=== PATIENT | male | born 1960 | race Caucasian/White ===

== ENCOUNTER → 2017-04-25 09:41 | Outpatient (CLI) | payer OTHER, SELFPAY ==
[2017-04-26 10:09] LABS: Vitamin D,25 Hydroxy 12.1 ng/mL
== END ==
PROVIDERS: Family Provider Internal Medicine; PCP Internal Medicine; Visit Provider Podiatrist
DX: E55.9 Vitamin D deficiency, unspecified (principal)
CPT/HCPCS: 36415; 82306

== ENCOUNTER 2017-05-19 06:27 | Day surgery (SDC) | payer OTHER, SELFPAY ==
[2017-05-19] VITALS (8 sets, daily range): BP systolic 95–117; BP diastolic 59–88; PULSE 70–81; RESP 16; TEMP 36.1–36.3; O2SAT 94–100; BMI 25.4
[2017-05-19 07:09] LABS: Hemoglobin 14.6 g/dl (13.0-16.5); Mean Corpuscular Hgb 30.7 pg (27.0-32.0); Mean Corpuscular Volume 90.5 fL (80-94); Mean Platelet Vol. 10.8 fl (6.2-12.0); Platelet Count 197 K/mm3 (150-450); RBC Distribution Width CV 12.9 % (11.6-14.6); RBC Distribution Width SD 42.3 fl (35.1-43.9); Red Blood Count 4.75 M/mm3 (4.6-6.2); White Blood Count 6.7 K/mm3 (4.4-11.0)
[2017-05-19 07:14] LABS: Anion Gap 6 (5-15); BUN 11 mg/dL (7-18); Chloride 103 mmol/L (98-107); EST Glomerular Filtration Rate 74 mL/min (>60); Est Glom Filt Rate - Afr Amer 89 mL/min (>60); Estimated Creatinine Clearance 72.55 ml/min; Glucose 127 mg/dL (74-106); Potassium 3.8 mmol/L (3.5-5.1); Scan Indicated on CBC? Y/N NO; Sodium Level 139 mmol/L (136-145)
[2017-05-19] MEDS: Clindamycin 900 MG/50 ML BAG 75 MG IV (07:50)
--- NOTE | 2017-05-19 08:00 | RAD_ITS ---
STUDY: X-RAY - RIGHT ANKLE REASON FOR EXAM: Male, 57 years old. Screw removal. TECHNIQUE: 3 intraoperative view(s) of the ankle. COMPARISON: Comparison is made with prior examination dated January 20, 2017. FINDINGS: The patient is status post open reduction and internal fixation of the lateral malleolus with screws and sideplate fixation device. The tube 4.8 centimeter screws transfixing the distal tibia and fibula abdomen removed. Normal medial and lateral malleoli. Normal tibiotalar articulation and ankle mortise. Normal visualized talus and calcaneus. The visualized subtalar, talonavicular, calcaneocuboid and tarsal articulations are normal. The soft tissue structures are unremarkable. RAD/Ankle 2 Views IMPRESSION: Status post hardware removal. Electronically Signed: Rafael Millan MD at 12:21 EST Tel [phone], Service support ,
[2017-05-19] MEDS: Bupivacaine 0.25% 30 ML Vial (08:50)
--- NOTE | 2017-05-19 10:42 | PCM.OPRPT ---
Report of Operation Date of Procedure: 05/19/17 Pre-Operative Diagnosis: Right ankle fracture with retained hardware; distal tib fib syndesmosis instability Post-Operative Diagnosis: Same Surgery/Procedure Performed:: Removal of syndesmotic screws with placement of Arthrex tightropes, right ankle Description of Surgical Findings:: Retained syndesmotic screws right ankle postpartum nurse: Dr Hoyt Type of Anesthesia:: Local MAC Specimen's removed: None Drains: None Estimated Blood Loss (mL): 10mL Description of Procedure: Indications: This is a 57 year old gentleman with history of dislocated ankle fracture who subsequently underwent open reduction internal fixation [id number]. Of note he has been nonadherent with post operative instructions. He has two retained syndesmotic screws. We discussed the options regarding these screws. We discussed the possibility of these breaking if they were not removed, we also discussed syndesmotic screw removal as well as placement of Arthrex Syndesmotic Tightropes. We discussed the possible benefits vs risks, goals and expectations of each, as well as the estimated healing time of further procedure. This was discussed with him in great detail. He expressed understanding and agreement and elected to proceed forward with syndesmotic screw removal with placement of Arthrex Syndesmotic Tightropes. Given the severity of the ankle fracture he had with deltoid ligament compromise and noted distal tib fib syndesmosis instability from the injury, the Arthrex Syndesmotic Tightropes are indicated to provide further stability and control of the ankle senior care. The consent forms were reviewed with him and he freely signed them. All of his questions were answered. Operative Procedure: The patient was brought back into the operative room and was placed on the operating room table in the supine position. He was carefully secured to the operating room table with a safely belt around his waist. The patient did received 900 milligrams of intravenous Clindamycin for antibiotic prophylaxis. A well padded pneumatic tourniquet was applied around the patient's right thigh but was never inflated or used. The patient received MAC anesthesia per the anesthesia team, and a total of 10mL of 0.25% Bupivacaine plain was given as a regional never block to the lateral ankle, this was completed after the overlying skin was cleaned with 70% isopropyl alcohol. The patient's right lower extremity was scrubbed, prepped, and draped in the usual aseptic fashion. A time out was performed and the patient was properly identified and the surgical plan was confirmed. The two syndesmotic screws were identified on intra operative fluoroscopy. A linear longitudinal skin incision was made overlying the lateral aspect of the screw heads. Careful blunt dissection was completed down through the subcutaneous tissue layer and deep tissue; the screw heads were visualized. The distal syndesmotic screw was easily removed with the appropriate screw lumber driver in toto. Holding the ankle in neutral position, one knotless titanium Arthrex syndesmotic tightrope XP was placed across the distal tib fib syndesmosis through the already placed hole from the screw, this was placed in standard fashion. The two buttons were in good position, oblong button medial and circular button lateral. The oblong button was sitting flush with the bone, and the lateral circular button was flush with the plate. The was tightened down being sure not to over tighten. It was in good position providing excellent stability to the ankle. The proximal syndesmotic screw was not able to be removed from the lateral aspect with the appropriate screw lumber driver because the screw had actually sunk deep to the hole of the distal lateral fibular plate. The plate was blocking the screw head from advancing out. It was attempted to remove the screw with the universal screw removal set but a good bite in the retained screw was not obtainable. This striped the screw head. Therefore the tip of the screw was visualized on intra operative fluoroscopy, and small linear skin incision was made to the medial ankle at level of the tip of the screw, careful blunt dissection was completed down through the subcutaneous tissue layer to the tip of the screw, and this was visualized. A 5mm in diameter trephine from the universal screw removal set was used to ream around the tip of the screw through the medial cortex of the tibia. Once this was completed the screw was easily tamped out from medial to lateral in toto without complication. The plate remained intact. Holding the ankle in neutral position, another knotless titanium Arthrex syndesmotic tightrope XP was placed across the distal fibula and tibia for further stability of the distal tib fib syndesmosis, this was placed through the already placed hole from the screw and trephine. A redrill for placement of this tightrope was considered to make more parallel to the ankle joint line, however this was not completed as this would have made the hole on the medial tibia to large risking the oblong button would not site flush or purchase the medial cortex. Otherwise the tightrope was placed in standard fashion. The two buttons were in good position, oblong button medial and circular button lateral. The oblong button was sitting flush with the bone, and the lateral circular button was flush with the plate. The was tightened down being sure not to over tighten. It was in good position providing further excellent stability to the ankle. All vital structures, including the peroneal tendons, as well as all neurovascular structures were avoided during this procedure, they were carefully protected and gently retracted out of the way as necessary. The ankle was placed through range of motion and it was good, and gliding smoothly with no popping, clicking or crepitus present. The ankle was stressed, there was negative anterior drawer sign, normal talar tilt and no distal tib fib instability at this time. The sites were flushed out with copious amounts of normal saline solution. The subcutaneous tissue layer was reapproximated using 3-0 Vicryl. The skin was reapproximated using 3-0 Monocryl. A dressing was applied which consisted of betadine soaked adaptic, 4x4 gauze, Kerlix, and daniele bandage. Hemostasis was achieved throughout the operative procedure with pressure and gauze, there was ~10mL of blood loss. Intra-operative fluoroscopic images were obtained of the ankle at end of the procedure and also post operative xrays were obtained in the recovery room (3 views), which confirmed syndesmotic screw removal, with placement of 2 Arthrex Tightropes XP which were fitting flush with the bone medially and plate laterally, ankle in good alignment, ankle mortise and gutters intact, remaining screws and plate intact, with no complications seen. The patient tolerated the above procedure well and the anesthesia well with no complications. The patient was transported from the operating room to the recovery room with vital signs stable and in good condition. Post operative orders were placed. Post operative instructions were reviewed with patient both oral and written, as well as with his who was here with him today. He is to keep the right foot elevated for at least 50 minutes of every hour and keep the dressing clean, dry, and intact. He may partial weight bear on right foot with use of CAM Walker and crutches. He was given a prescription for Vicodin 5/300mg PO 1-2 tabs q 6 hours PRN pain for post operative pain management/control. He is to follow up with me in 1 week or sooner if needed. Grafts/Implants Used: 2 Arthrex Syndesmotic Tightropes XP - Complications None
--- NOTE | 2017-05-19 10:44 | PCM.DC.POD ---
Discharge Diet: Light diet - advance as tolerated Discharge Activity: May Not Drive Weight Bearing Status: Partial weight bearing - Use CAM Walker right foot/ankle with all weightbearing/ambulation Keep extremity elevated above heart level: Right Leg - Keep right foot elevated for at least 50 minutes of every hour Call your doctor if your incision/area has: Continuous Slow Oozing, Sudden Increased Bleeding, Increased Pain/ Swelling, Foul Smelling Discharge Call your doctor if you observe: Fever of 101 or Higher, Coldness, Increased Pain, Shortness of breath, Chest pain, Increased palpitations (irregular heartbeat), Calf discomfort, Uncontrolled pain Cleanse incision/area with: Do not get Incision Wet, Keep Dressing Clean & Dry Allergies/Adverse Reactions: Allergies Penicillins Allergy (Verified 05/12/17 11:12) Unknown Medications to take at Discharge Esomeprazole Mag Trihydrate [Nexium] 20 mg PO DAILY PRN PRN 01/19/17 Hydrocodone/Acetaminophen [Vicodin 5-300 mg Tablet] 1 - 2 tab PO Q6H PRN PRN 5 Days #30 tab 05/19/17 The following prescriptions were given: Hydrocodone/Acetaminophen [Vicodin 5-300 mg Tablet] 1 - 2 tab PO Q6H PRN PRN 5 Days #30 tab PRN Reason: Pain Primary Care Physician: Sundar Husain [Primary Care Provider] - Please Follow Up With: Jose Otero DPM When: within 1 week or sooner if needed
--- NOTE | 2017-05-19 11:04 | RAD_ITS ---
STUDY: X-RAY - RIGHT ANKLE REASON FOR EXAM: Male, 57 years old. Hardware removal. TECHNIQUE: 3 view(s) of the ankle. COMPARISON: Comparison is made with prior examination dated January 20, 2017. FINDINGS: The patient is status post open reduction and internal fixation of the distal fibula. The two 4.8 centimeter screws transfixing distal fibula and tibia have been removed. Normal medial and lateral malleoli. Normal tibiotalar articulation and ankle mortise. Normal visualized talus and calcaneus. The visualized subtalar, talonavicular, calcaneocuboid and tarsal articulations are normal. Postoperative soft tissue changes. RAD/Ankle min 3 Views IMPRESSION: Hardware removal. Electronically Signed: Rafael Millan MD at 12:22 EST Tel [phone], Service support ,
== END 2017-05-19 12:10 | disposition home or self-care (01) ==
LOC: SDC 06:28 → AC 06:32
PROVIDERS: Anesthesiology; Family Provider Internal Medicine; PCP Internal Medicine; Visit Provider Podiatrist
PROC: (CPT 20680; principal; 2017-05-19 07:45)
DX: Z47.2 Encounter for removal of internal fixation device (principal); S82.891D Other fracture of right lower leg, subsequent encounter for closed fracture with routine healing; X58.XXXD Exposure to other specified factors, subsequent encounter; M25.371 Other instability, right ankle; K21.9 Gastro-esophageal reflux disease without esophagitis; Z87.891 Personal history of nicotine dependence
CPT/HCPCS: 20680; 27829; 73600; 73610; 76000; 80048; 85027; J7120; J2405

== ENCOUNTER → 2020-10-19 07:00 | Outpatient (CLI) | payer BC, SELFPAY ==
--- NOTE | 2020-10-19 07:11 | MRI_ITS ---
History: RADICULOPATHY CERVICOTHORACIC REGION, CHRONIC UPPER BACK PAIN Technique: T1 and T2 MR imaging of the cervical spine performed without contrast enhancement in axial and sagittal planes. 15ml Dotarem Findings: Loss of the cervical lordosis. No bone marrow edema Multilevel disc space narrowing. Multilevel facet arthropathy is noted. Cervical cord is normal. Paraspinal soft tissues are normal. No abnormal contrast enhancement. C2-3: No disc protrusion. Normal caliber spinal canal and neural foramina. C3-4: No disc protrusion. Normal caliber spinal canal and neural foramina. C4-5: Mild disc bulging without significant impingement on the spinal canal. Normal caliber neural foramina. C5-6: Prominent right posterolateral disc osteophyte complex causes mild narrowing of the right lateral recess. Mild narrowing of both neural foramina related to uncinate joint hypertrophy. C6-7: Broad-based disc osteophyte complex and posterior ligamentous redundancy results in mild impression on the thecal sac. Moderate bilateral neural foraminal narrowing related to uncinate joint hypertrophy. C7-T1: No disc protrusion. Normal caliber spinal canal and neural foramina. MRI/Spine Cervical W/WO Contrast IMPRESSION: Multilevel disc degeneration without spinal stenosis. Narrowing of the right C5-6 lateral recess. Bilateral neural foraminal narrowing at C5-6 and C6-7 related to uncinate joint hypertrophy. at 0853 Reported and signed by: Dionisio Dorantes MD Electronically Signed: Dionisio Dorantes MD at 8:52 EDT Tel , Service support ,
--- NOTE | 2020-10-19 07:13 | MRI_ITS ---
STUDY: MRI THORACIC SPINE WITH AND WITHOUT CONTRAST REASON FOR EXAM: Male, 60 years old. Chronic upper back pain. TECHNIQUE: IV 15ml Dotarem was administered for the contrast portion of the examination. COMPARISON: None. FINDINGS: Vertebrae: No fracture or concerning osseous lesions. Normal alignment. No abnormal enhancement. Thecal sac: Normal contour and signal of the thoracic spinal cord. The conus terminates at the level of the mid L1 vertebral body with normal contour and signal. No abnormal enhancement. No epidural or intradural lesions. Degenerative changes: Mild for age degenerative changes. No significant disc protrusions. No significant narrowing of the spinal canal or foramina. Discs and ligaments intact. Paraspinal soft tissues: No acute or concerning findings. MRI/Spine Thoracic W/WO Contrast IMPRESSION: Normal MRI Thoracic Spine with and without gadolinium. Electronically Signed: Eliot Mccarthy MD at 8:20 EDT Tel , Service support ,
== END ==
PROVIDERS: PCP Internal Medicine; Referring Provider Internal Medicine; Visit Provider Internal Medicine
DX: M54.9 Dorsalgia, unspecified (principal); M54.13 Radiculopathy, cervicothoracic region
CPT/HCPCS: 72156; 72157; A9575